=== PATIENT | male | born 1950 | race Caucasian/White ===

== ENCOUNTER 2020-03-15 18:46 | Inpatient (IN) | payer OTHER ==
[~2020-03-15] VITALS: Ht 182.9 cm; Wt 108.0 kg
[2020-03-15 22:15] VITALS: BP 181/117
--- NOTE | 2020-03-15 22:30 | NUR ---
Patient arrived from [facility]. Patient A/O x4, respirations even/unlabored, NAD at this time. Patient denies any chest pain, shortness of breath, dizziness, weakness or nausea. Placed on monitoring and evaluation advisor, hypertensive at this time. MD at bedside, will discuss HTN treatment and plan of care.
--- NOTE | 2020-03-15 22:33 | NUR ---
Notified of patient admission, new orders received
[2020-03-15 22:54] LABS: BASOPHIL # 0.1 10^3/uL (0.0-0.1); BASOPHIL % 0.9 % (0.0-0.2); EOSINOPHIL # 0.1 10^3/uL (0.0-0.2); EOSINOPHIL % 2.1 % (0.0-5.0); LYMPHOCYTES # 1.37 10^3/uL1 (1.0-4.8); LYMPHOCYTES % 23.5 % (24.0-44.0); MEAN CORP HGB 36.1 pg (26-34); MONOCYTES # 0.9 10^3/uL (0.3-0.8); MONOCYTES % 15.2 % (5.0-12.0); NEUTROPHIL # 3.4 10^3/uL (1.8-7.7); NEUTROPHILS % 58.1 % (41.0-85.0); PLATELET COUNT 261 10^3/uL (150-400); RED CELL DISTRIBUTION WIDTH 13.5 % (11.5-14.5)
[2020-03-15] MEDS ORDERED: ATIVAN IV STA (22:54)
[2020-03-15 23:00] VITALS: BP 204/90
[2020-03-15] MEDS ORDERED: APRESOLINE IV PRN (23:00)
[2020-03-15] MEDS ORDERED: TRANDATE IV ONE (23:00)
[2020-03-15 23:15] VITALS: BP 134/83
[2020-03-15 23:21] LABS: CALCIUM 9.4 mg/dL (8.4-10.5); CARBON DIOXIDE 26.6 mmol/L (20.0-32)
[2020-03-15 23:30] VITALS: BP 155/89
[2020-03-15 23:45] VITALS: BP 131/86
--- NOTE | 2020-03-15 23:48 | NUR ---
at bedside. discussed new lab results. New orders received.
[2020-03-15] MEDS ORDERED: LASIX IV STA (23:49)
[2020-03-16] VITALS (28 sets, daily range): BP systolic 82–177; BP diastolic 37–119
[2020-03-16] MEDS ORDERED: KCL 20MEQ/100ML 100 ML IV SCH
[2020-03-16] MEDS ORDERED: MAGNESIUM SULFATE 50 ML IV ONE
--- NOTE | 2020-03-16 00:20 | NUR ---
Dr. Nava contacted at the request of Dr. Mims for orders regarding cardiac condition. No answer x 2, left message, awaiting call back.
--- NOTE | 2020-03-16 00:26 | NUR ---
Benjamin catheter placed, 16F, no problems noted with insertion, draining.
[2020-03-16] MEDS ORDERED: NS 250ML 250 ML IV ONE (00:47)
--- NOTE | 2020-03-16 02:00 | NUR ---
Notified Dr. Mims that Dr. Nava had not returned call. Per MD, ok to wait until morning to recontact. No changes in patient care at this time.
--- NOTE | 2020-03-16 02:51 | PCM.HP ---
History of Present Illness Reason for Visit: (1) Chronic atrial fibrillation ICD Code: I48.20 - Chronic atrial fibrillation, unspecified SNOMED: 753793618 (2) Acute on chronic congestive heart failure ICD Code: I50.9 - Heart failure, unspecified SNOMED: 239766814, 46678126221205 (3) Presence of stent in coronary artery in patient with coronary artery disease ICD Code: I25.10 - Atherosclerotic heart disease of [place] coronary artery without angina pectoris; Z95.5 - Presence of coronary angioplasty implant and graft SNOMED: 295508033, 463171279 (4) Chest pain ICD Code: R07.9 - Chest pain, unspecified SNOMED: 79317784 (5) Hypertension ICD Code: I10 - Essential (primary) hypertension SNOMED: 53945688 Hx of Present Illness 69-year-old [facility] over possible acute coronary syndromeWith her facility having no access to a lead portfolio manager.. He initially presented to that facility with complaints of acute onset of heavy chest pain lasting a number of minutes at about 3 AM this morning. And there reports there was suggestion that this recurred with exercise but the patient denies that. His initial troponin at their facility was 38.7 on a scale with a normal that extended to 34. He does have a history of coronary artery disease and prior angioplasty a few months ago for which she continues to be treated with Brilinta for stent placement.He takes Xarelto for his chronic atrial fibrillation which exhibits good rate control He also does have a history of DVT with pulmonary embolus and apparently previously had an IVC filter placed which has since been removed. He reports a long history of labile hypertension which is treated with carvedilol and clonidine but continues to be labile to the 170-180 range frequently. He does have a history of some congestive heart failure and by our labs tonight his proBNP was significantly elevated to 3488 prompting a treatment with 80 mg IV LasiHis comorbid issues include bipolar disorder and schizophrenia, and he is difficult historian and tends to be tangential and easily distracted and quite verbally profuse. His initial troponin here was within normal limits and all other routine labs were essentially normal including a magnesium of 1.9. Is currently denying chest pain and has twelve-lead EKG is not suggestive of any acute ischemia at this time Past Medical History PMH-Psych: (1) Schizophrenia ICD Code: F20.9 - Schizophrenia, unspecified SNOMED: 82028247 (2) Bipolar disorder ICD Code: F31.9 - Bipolar disorder, unspecified SNOMED: 15907776 Past Surgical History: (1) CAD S/P percutaneous coronary angioplasty ICD Code: I25.10 - Atherosclerotic heart disease of [place] coronary artery without angina pectoris; Z98.61 - Coronary angioplasty status SNOMED: 132358874 Review of Systems Constitutional: Weakness, Malaise Respiratory: Shortness of breath, SOB with excertion Cardiovascular: Chest Pain, Lt Headedness Neurological: Weakness VTE VTE Risk Total Score: >5 VTE Risk Score VTE Risk: Score 0-1 = Low Risk (Aggressive mobilization; early ambulation; no VTE prophylaxis required) Score 2: Moderate Risk (Intermittent/Pneumatic Compression Device OR Lovenox/Heparin/Coumadin) Score 3-4: High Risk (Intermittent/Pneumatic Compression Device AND Lovenox/Heparin/Coumadin) Score > or =5: Highest Risk (Intermittent/Pneumatic Compression Device AND Lovenox/Heparin/Coumadin) Antico:Hep/LMWH/Coum/Xarelto: Yes VTE VTE Present on Admission: No Currently receiving anticoagul: Yes VTE Risk Total Score: >5 Antico:Hep/LMWH/Coum/Xarelto: Yes Exam Vital Signs Vital Signs Date Time Temp Pulse Resp B/P (MAP) Pulse Ox O2 Delivery O2 Flow Rate FiO2 03/16/20 01:00 68 16 132/90 (104) 96 03/16/20 00:00 Room Air 03/16/20 00:00 98.7 03/15/20 22:15 2.00 General Appearance: Alert, Oriented X3, Cooperative, No acute distress, Other (Verbose and tangential) HEENT: PERRLA, EOMI Respiratory: Clear to auscultation, Normal air movement Cardiovascular: Other (Irregular rhythm) Abdominal: Normal bowel sounds, Soft Extremities: No clubbing, No cyanosis, No edema Skin: No rash, No lesions Neuro: Normal gait, Strength at 5/5 X4 ext, Normal tone, Cranial nerves 3-12 NL Psych/Mental Status: Other (Tangential in thought and speech with rapid speech and difficult to keep on track with conversation) Assessment/Plan Assessment/Plan Assessment/Plan ASSESSMENT: CHEST PAIN / PRESSURE ON AWAKENING WITH SOB AND WEAKNESS -CONCERN FOR ACUTE CORONARY SYNDROME ON TRANSFER -MARGINALLY ELEVATED TROPONIN INITIALLY, ESSENTIALLY NORMAL NOW -HAS REMAINED PAIN-FREE SINCE INITIAL EVENT -XARELTO BEING HELD IN FAVOR OF HEPARIN DRIP WITH KNOWN CAD AND RECENT STENT PLACEMENT -ON BRILINTA ELEVATED BNP WITH SOME PULMONARY CONGESTION ON X-RAY -C/W VOLUME OVERLOAD -GIVEN 80 MG IV LASIX UNCONTROLLED HTN - RESPONDED WELL TO ABOVE ALONG WITH LABETALOL - HE IS CHRONICALLY EMPLOYING HIGH DOSE CLONIDINE - CONCERN FOR REBOUND POTENTIAL CHRONIC ATRIAL FIBRILLATION -GOOD RATE CONTROL HISTORY OF DVT AND PE -PRIOR IVC FILTER PLACEMENT AND SUBSEQUENT REMOVAL -WILL CHECK D-DIMER, BUT DOUBT RECURRENCE GIVEN XARELTO VITAMIN B-12 DEFICIENCY - MCV OF 106.7 BIPOLAR / SCHIZOPHRENIA -GIVEN SEROQUEL WITH GOOD RESPONSE GIVEN HIS PERSISTENT RAPID / PRESSURED SPEECH AND ANXIETY PLAN: CONTINUE HEPARIN DRIP ATTEMPTED TO CONTACT DR. GOMEZ FOR CONSULT RESUME HOME BLOOD PRESSURE MEDICATIONS RECHECK TROPONIN REPEAT EKG IN AM CONSIDER NTG PASTE OR PATCH WITH ANY RECURRENT CHEST PAIN Problem Qualifiers (1) Chest pain: Chest pain type: precordial pain Qualified Codes: R07.2 - Precordial pain (2) Hypertension: Hypertension type: essential hypertension Qualified Codes: I10 - Essential (primary) hypertension PHILLIP CLAUDIO MD Mar 16, 2020 02:51
--- NOTE | 2020-03-16 05:11 | PCM.EKG ---
[facility] Test Date: 2020-03-16 Test Time: 00:43:55 Pat Name: MARINA BOB Department: Room: 234 A Gender: M Regional Clinical Research Associate: ROBERTO : 1950 Requested By: CLINT BOYLE Order Number: [id number] Reading MD: Measurements Intervals [place] Rate: 69 P: 53 LA: 189 QRS: -60 QRSD: 177 T: 22 QT: 478 QTc: 512 Interpretive Statements Sinus rhythm Right bundle branch block No previous ECG available for comparison Please click the below link to view image of tracing.
--- NOTE | 2020-03-16 05:11 | NUR ---
Dr. Nava contacted primary RN. Patient condition discussed and all updates provided. Per MD, no emergent cardiac catheterization at this time. Will continue to monitor closely. See new orders.
[2020-03-16 06:50] LABS: BASOPHIL % 0.5 % (0.0-0.2); EOSINOPHIL # 0.1 10^3/uL (0.0-0.2); EOSINOPHIL % 1.1 % (0.0-5.0); LYMPHOCYTES % 14.8 % (24.0-44.0); MEAN CORP HGB 36.3 pg (26-34); MONOCYTES # 1.1 10^3/uL (0.3-0.8); MONOCYTES % 13.9 % (5.0-12.0); NEUTROPHIL # 5.7 10^3/uL (1.8-7.7); NEUTROPHILS % 69.6 % (41.0-85.0); PLATELET COUNT 275 10^3/uL (150-400); RED CELL DISTRIBUTION WIDTH 13.7 % (11.5-14.5)
[2020-03-16 07:14] LABS: CALCIUM 9.4 mg/dL (8.4-10.5); CARBON DIOXIDE 25.5 mmol/L (20.0-32); GLUCOSE 107 mg/dL (70-110)
[2020-03-16] MEDS: ASPIRIN EC PO SCH (08:20)
[2020-03-16] MEDS: COREG PO SCH ×2 (08:21→20:43)
--- NOTE | 2020-03-16 08:40 | DIREP ---
PROCEDURE:CHEST 1 VIEW COMPARISON:None. INDICATIONS:CHF FINDINGS: LUNGS/PLEURA:No significant pulmonary parenchymal abnormalities. No effusions. VASCULATURE:Normal. Unremarkable pulmonary vasculature. CARDIAC:Normal. No cardiac silhouette abnormality or cardiomegaly. MEDIASTINUM:Calcified aorta. BONES:Degenerative changes. OTHER:Negative. CONCLUSION:No acute pulmonary process. Dictated by: Saravanan Munson M.D. on 03/16/2020 at 08:38 AM
[2020-03-16] MEDS ORDERED: BRILINTA PO SCH (09:00)
[2020-03-16] MEDS: COZAAR PO SCH (09:00)
[2020-03-16] MEDS ORDERED: LASIX IV SCH (09:00)
[2020-03-16] MEDS ORDERED: VITAMIN B-COMPLEX WITH VIT C PO SCH (09:00)
[2020-03-16] MEDS ORDERED: XARELTO PO SCH (09:00)
[2020-03-16] MEDS: CATAPRES PO SCH ×2 (09:31→20:47)
[2020-03-16] MEDS: VITAMIN C PO SCH (09:35)
[2020-03-16] MEDS ORDERED: SOLU-CORTEF IV STA (10:06)
[2020-03-16] MEDS ORDERED: SOLU-CORTEF ONE (10:12)
[2020-03-16] MEDS ORDERED: NS 1000ML 1,000 ML IV ONE (10:30)
--- NOTE | 2020-03-16 11:07 | NUR ---
Report obtained from previous nurse. Pt alert and oriented, denies pain. Pt hypotensive on monitor [address] Carlos Patino at bedside. Solucortef 100 mg ordered and given, EKG, Stat labs, Echo ordered and performed. NiTro paste to left chest removed at 1020. EKG reviewed by Dr Patino, no changes noted. BP currently improving, will continue to monitor.
--- NOTE | 2020-03-16 11:11 | NUR ---
Pts blood pressure this morning at 0725 is 154/88. Pts blood pressure 0.5 hr later was down to 90/47. Pt wanted to got up to walk this morning in the halls despite being told to stay in bed. Pts blood pressure continued to decrease. Pts blood pressure medication was held. Pts Dr notified on the drop in blood pressure, Dr ordered 2 500 ml bolus of NS. Pt blood pressure increased to 106/37. Pt given to an ICU nurse to get care, report given. Pt will continue to be monitored.
--- NOTE | 2020-03-16 12:10 | PCM.EKG ---
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
--- NOTE | 2020-03-16 12:26 | NUR ---
Dr Iza Patino called and updated on pt's BP. Pt BP steadily increasing. Pt scheduled AM meds discussed, decision made by Dr Fung to give Cozarr 100 mg by mouth and continue to hold clonidine. Pt educated and medicated with Cozarr, will continue to monitor.
[2020-03-16] MEDS ORDERED: COZAAR PO ONE (12:30)
--- NOTE | 2020-03-16 14:29 | PCM.ECHO ---
APPROVED REPORT EXAM: Comprehensive 2D, Doppler, and color-flow Echocardiogram. Patient Location: IN-PATIENT Rhythm: NSR Indications Chest Pain 2D Dimensions LVOT Diameter 2.44 (1.8-2.4cm) LVEF(%) 57.25 (>50%) M-Mode Dimensions RVDd 1.95 (2.1-3.2cm) Left Atrium(MM) 4.90 (2.5-4.0cm) IVSd 1.55 (0.7-1.1cm) Aortic Root 4.50 (2.2-3.7cm) LVDd 6.05 (4.0-5.6cm) Aortic Cusp Exc 2.85 (1.5-2.0cm) PWd 1.25 (0.7-1.1cm) MV EPSS 0.96 (<0.5cm) IVSs 2.25 cm FS (%) 33.05 % LVDs 4.05 (2.0-3.8cm) ESV(Teich) 73.27 ml PWs 1.80 cm LVEF(%) 60.68 (>50%) Volumes Biplane 2D LV Volumes Biplane 2D LA Volumes LVEDv A4C 154.08 mL LA ESV Index LVESv A4C 65.87 mL Aortic Valve AoV Peak Tylor. 1.20 m/s AoV VTI 25.30 cm AO Peak GR. 6.15 mmHg AO Mean GR. 3.50 mmHg LVOT VTI 19.38 cm LVOT Peak Tylor. 1.01 m/s GRANT(VTI)/BSA 3.57 cm2/m2 GRANT (VTI) 3.57 cm2 Mitral Valve MV E Velocity 0.75m/s MR Peak Gr. 2.35mmHg MV A Velocity 1.20m/s TDI Lateral E' P. V 0.07m/s Medial E' P. V 0.07m/s Pulmonary Valve PV Peak Velocity 0.65m/s PV Peak Grad. 1.90mmHg RVOT VTI 12.66cm LEFT VENTRICLE The left ventricle is normal size. The left ventricular systolic function is normal. The left ventricular ejection fraction is within the normal range. There is normal left ventricular wall thickness. There is normal LV segmental wall motion. There is no ventricular septal defect visualized. No left ventricle thrombus noted on this study. LVEF is 55%. RIGHT VENTRICLE The right ventricle is normal size. The right ventricular systolic function is normal. There is normal right ventricular wall thickness. ATRIA The left atrium size is normal. The right atrium size is normal. The interatrial septum is intact with no evidence for an atrial septal defect. AORTIC VALVE The aortic valve is normal in structure. There is no aortic valvular stenosis. No aortic regurgitation is present. There is no aortic valvular vegetation. MITRAL VALVE The mitral valve is normal in structure. There is no mitral valve stenosis. Mild mitral regurgitation. There is no evidence of mitral valve vegetations. TRICUSPID VALVE The tricuspid valve is normal in structure. There is no tricuspid valve stenosis. Mild tricuspid regurgitation. There is no tricuspid valve vegetations. PULMONIC VALVE Pulmonic valve is not well visualized. There is no pulmonic valvular stenosis. There is no pulmonic valvular regurgitation. GREAT VESSELS The aortic root is normal in size. Pulmonary artery is not well visualized. Aortic arch is not well visualized. The IVC is normal in size and collapses >50% with inspiration. PERICARDIUM There is no pericardial effusion. There is no pleural effusion. <Conclusion> The left ventricular systolic function is normal. LVEF is 55%. Mild mitral regurgitation. Mild tricuspid regurgitation. Electronically signed by : CLINT BOYLE. 03/16/2020 14:29:17
--- NOTE | 2020-03-16 14:44 | PRM.PN ---
PROGRESS NOTE SUBJECTIVE Patient is seen and examined. Had episode of hypotension that improved after IV NS bolus. Later BP increased exponentially prompting treatment with cozaar. He denies having chest pain. Troponin remain unremarkable. EKG remain unchanged during the period. OBJECTIVE First Vital Signs Date Time Temp Pulse Resp B/P (MAP) Pulse Ox O2 Delivery O2 Flow Rate FiO2 03/15/20 22:15 98.1 76 20 181/117 (138) 98 03/15/20 22:15 Nasal Cannula 2.00 Last Vital Signs Date Time Temp Pulse Resp B/P (MAP) Pulse Ox O2 Delivery O2 Flow Rate FiO2 03/16/20 13:45 74 129/72 (91) 98 03/16/20 11:47 98.0 03/16/20 11:38 Room Air 03/16/20 10:21 18 03/15/20 22:15 2.00 Laboratory Tests Test 03/15/20 22:43 03/15/20 22:53 03/16/20 05:58 03/16/20 10:20 White Blood Count 5.8 10^3/uL (4.5-11.0) 8.1 10^3/uL (4.5-11.0) Red Blood Count 3.57 10^6/uL (4.50-5.90) 3.66 10^6/uL (4.50-5.90) Hemoglobin 12.9 g/dL (13.9-16.3) 13.3 g/dL (13.9-16.3) Hematocrit 37.6 % (37.0-53.0) 38.5 % (37.0-53.0) Mean Corpuscular Volume 105.3 fL (78-100) 105.2 fL (78-100) Mean Corpuscular Hemoglobin 36.1 pg (26-34) 36.3 pg (26-34) Mean Corpuscular Hemoglobin Concent 34.3 g/dL (33-36.5) 34.5 g/dL (33-36.5) Red Cell Distribution Width 13.5 % (11.5-14.5) 13.7 % (11.5-14.5) Platelet Count 261 10^3/uL (150-400) 275 10^3/uL (150-400) Mean Platelet Volume 8.8 fL (7.8-11.0) 9.4 fL (7.8-11.0) Neutrophils (%) (Auto) 58.1 % (41.0-85.0) 69.6 % (41.0-85.0) Lymphocytes (%) (Auto) 23.5 % (24.0-44.0) 14.8 % (24.0-44.0) Monocytes (%) (Auto) 15.2 % (5.0-12.0) 13.9 % (5.0-12.0) Neutrophils # (Auto) 3.4 10^3/uL (1.8-7.7) 5.7 10^3/uL (1.8-7.7) Lymphocytes # (Auto) 1.37 10^3/uL1 (1.0-4.8) 1.20 10^3/uL1 (1.0-4.8) Monocytes # (Auto) 0.9 10^3/uL (0.3-0.8) 1.1 10^3/uL (0.3-0.8) Absolute Immature Granulocyte (auto 0.01 10^3 u/L (0-2) 0.01 10^3 u/L (0-2) Absolute Eosinophils (auto) 0.1 10^3/uL (0.0-0.2) 0.1 10^3/uL (0.0-0.2) Immature Granulocytes % 0.20 % (0.00-0.50) 0.10 % (0.00-0.50) Eosinophils % 2.1 % (0.0-5.0) 1.1 % (0.0-5.0) Basophils % 0.9 % (0.0-0.2) 0.5 % (0.0-0.2) Basophils # 0.1 10^3/uL (0.0-0.1) 0.0 10^3/uL (0.0-0.1) Sodium Level 140 mmol/L (132-145) 140 mmol/L (132-145) Potassium Level 3.4 mmol/L (3.6-5.2) 3.6 mmol/L (3.6-5.2) Chloride Level 106.0 mmol/L (96-109) 105.0 mmol/L (96-109) Carbon Dioxide Level 26.6 mmol/L (20.0-32) 25.5 mmol/L (20.0-32) Anion Gap 10.8 13.1 Blood Urea Nitrogen 17 mg/dL (7-18) 17 mg/dL (7-18) Creatinine 0.94 mg/dL (0.59-1.40) 0.95 mg/dL (0.59-1.40) Estimated GFR () 95.7 (>/=60) 94.6 (>/=60) Est GFR (CKD-EPI)(Non-Afr [place]) 79.1 (>/=60) 78.2 (>/=60) BUN/Creatinine Ratio 18.0 17.0 Glucose Level 129 mg/dL (70-110) 107 mg/dL (70-110) Calcium Level 9.4 mg/dL (8.4-10.5) 9.4 mg/dL (8.4-10.5) Magnesium Level 2.1 mg/dL (1.8-2.4) 2.4 mg/dL (1.8-2.4) Total Bilirubin 0.8 mg/dL (0.2-1.0) Aspartate Amino Transf (AST/SGOT) 28 U/L (0-35) Alanine Aminotransferase (ALT/SGPT) 44 U/L (12-78) Alkaline Phosphatase 86 U/L (50-136) Troponin I 0.04 ng/mL (0.00-0.05) < 0.02 ng/mL (0.00-0.05) 0.02 ng/mL (0.00-0.05) Pro-B-Type Natriuretic Peptide 3488 pg/mL (0-125) Total Protein 6.2 g/dL (6.4-8.2) Albumin 3.6 g/dL (3.4-5.0) Globulin 2.6 Albumin/Globulin Ratio 1.384 Prothrombin Time 11.1 SEC (9.3-11.3) Prothrombin Time INR (Non-Therap) 1.1 Activated Partial Thromboplast Time 27.9 SEC (24.67-30.72) Total Creatine Kinase 85 U/L (39-308) 78 U/L (39-308) Creatine Kinase MB 1.1 ng/mL (0.5-3.6) 0.8 ng/mL (0.5-3.6) General Appearance: Alert, Oriented X3, Cooperative, No acute distress, tangential thought HEENT: PERRLA, EOMI Respiratory: Clear to auscultation, Normal air movement Cardiovascular: RRR Abdominal: Normal bowel sounds, Soft Extremities: No clubbing, No cyanosis, No edema Skin: No rash, No lesions Neuro: Normal gait, Strength at 5/5 X4 ext, Normal tone, Cranial nerves 3-12 NL Psych/Mental Status: Tangential in thought and speech with rapid speech and difficult to keep on track with conversation Assessment/Plan Labile hypertension -concerning for phaechromcytoma, Will order plasma metenaphrines -hypotension improved after NS bolus and 100mg hydrocortisone -episode of HTN noted again -patient claimed that he had this problem for a long time CHEST PAIN -resolved -troponin remain normal -EKG unchanged -cardiology consulted -discussed patient with Dr Nava. Observe another day. hx of CAD -continue brilanta Hx of PE/DVT -continue heparin -resume xarelto after discharge Hx of CHF -recent elevation of BNP noted -repeat ECHO ordered -report is pending -Hold laxis because of hypotension -Megaloblastic anemia -continue Vit B12 and folic acid supplementation Further care per clinical course: Clemente lab results to r/o phaechromocytoma. CHRISTINA LINARES MD Mar 16, 2020 14:44
--- NOTE | 2020-03-16 17:24 | PCM.EKG ---
[facility] Test Date: 2020-03-16 Test Time: 10:20:52 Pat Name: MARINA BOB Department: Room: 234 A Gender: M Travel Counselor: CELIA : 1950 Requested By: PHILLIP CLAUDIO Order Number: [id number] Reading MD: Measurements Intervals [place] Rate: 96 P: 41 VT: 188 QRS: -70 QRSD: 174 T: -5 QT: 445 QTc: 563 Interpretive Statements Sinus rhythm RBBB and LAFB Compared to ECG 03/16/2020 05:26:34 Left anterior fascicular block now present Atrial premature complex(es) no longer present Please click the below link to view image of tracing.
[2020-03-16] MEDS ORDERED: LASIX PO STA (17:25)
[2020-03-16] MEDS ORDERED: APRESOLINE PO PRN (17:30)
[2020-03-16] MEDS ORDERED: LIPITOR PO SCH (21:00)
--- NOTE | 2020-03-17 02:18 | NUR ---
While sleeping patients spo2 observed decreasing to 97-88% when patient awakened by nurse and asked to deep breath spo2 increased to 93-94% RT notified pt to wear 2L of o2 via nasal cannula while sleeping to maintain spo2 above 92%.
[2020-03-17 07:29] VITALS: BP 167/99
[2020-03-17 08:38] VITALS: BP 128/77
[2020-03-17] MEDS: COREG PO SCH (08:41)
[2020-03-17] MEDS: COZAAR PO SCH (08:42)
[2020-03-17] MEDS: VITAMIN C PO SCH (08:43)
[2020-03-17] MEDS: ASPIRIN EC PO SCH (08:43)
[2020-03-17] MEDS ORDERED: NORVASC PO SCH ×2 (09:00)
[2020-03-17 09:11] VITALS: BP 116/77
[2020-03-17 10:25] VITALS: BP 115/70
[2020-03-17] MEDS ORDERED: ASPI-929 PO (11:20)
[2020-03-17] MEDS ORDERED: AMLO5TAB4 PO (11:20)
[2020-03-17] MEDS ORDERED: ATOR40TA PO (11:20)
[2020-03-17] MEDS ORDERED: LOSA50TA2 PO (11:20)
[2020-03-17] MEDS ORDERED: CARV12.5 PO (11:20)
[2020-03-17 12:58] VITALS: BP 139/84
--- NOTE | 2020-03-17 13:01 | CNH ---
DATE OF CONSULTATION: 03/16/2020 REASON FOR CONSULTATION: Chest pain/mildly decompensated heart failure. HISTORY OF PRESENT ILLNESS: This is a 69-year-old male who presented initially to the [facility] with symptoms of chest discomfort, which he describes as sharp pain in the substernal region. Upon presentation to the Emergency Room at the [facility], troponin was noted to be marginally elevated and so the patient was transferred to [facility] for higher acuity of care. At this time, he denies any chest pain, shortness of breath or palpitations. EKG shows normal sinus rhythm with a right bundle branch block with no evidence of myocardial ischemia. Troponins at this hospital have been negative x 3. His proBNP was noted to be elevated at 3488. A diagnosis of mild decompensated heart failure has been made and the patient is currently being treated with diuretics as well as beta-amos therapy and ARBs therapy. PAST MEDICAL HISTORY: Significant for; 1. Chronic CHF. 2. Known CAD, status post PCI in the past. 3. Hypertension. 4. Chronic atrial fibrillation. 5. Schizophrenia. 6. Bipolar disorder. PAST SURGICAL HISTORY: Cardiac catheterization with PCI to an unknown vessel done few months ago according to the patient. ALLERGIES: He is allergic to HYDROCHLOROTHIAZIDE and LISINOPRIL. MEDICATIONS: He takes at home includes; 1. Aspirin. 2. Brilinta. 3. Xarelto. 4. Carvedilol. 5. Clonidine. 6. Multivitamins. FAMILY HISTORY: He denies any family history of premature coronary artery disease or sudden cardiac . SOCIAL HISTORY: Denies alcohol use. Denies tobacco use. Denies illicit drug use. REVIEW OF SYSTEMS: As per HPI and as per previous records, all systems reviewed and negative for interval change. PHYSICAL EXAMINATION: VITAL SIGNS: Blood pressure is 129/72, respiratory rate is 18, pulse is 74 and oxygen saturation is 98% on room air. GENERAL: I see no apparent distress, alert and oriented x 3. HEENT: Normocephalic, atraumatic. Extraocular muscles are intact. Pupils are equally round and reactive to light and accommodation. CARDIAC: S1, S2. No gallops, murmurs, rubs, or clicks. LUNGS: Clear to auscultation bilaterally. No wheezing, rhonchi or rales. ABDOMEN: Soft, nontender, nondistended. Positive bowel sounds in all 4 quadrants. EXTREMITIES: No cyanosis, no clubbing, no edema, +2 pedal pulses palpable bilaterally. NEUROLOGIC: No neurological deficits. Sensation is intact. IMPRESSION: 1. Chest pain, rule out acute coronary syndrome. 2. Known history of coronary artery disease with prior percutaneous coronary intervention to an unknown vessel done this year according to the patient. 3. Acute decompensated heart failure secondary to diastolic dysfunction. 4. Chronic congestive heart failure. 5. Hypertension. 6. Bipolar disorder. 7. Schizophrenia. 8. Left ventricular ejection fraction of 55% with no evidence of wall motion abnormalities seen on 2D echo. RECOMMENDATIONS: This is a 69-year-old male who was transferred in from the [facility] with symptoms of chest discomfort. Troponins done here at the hospital is currently negative x 3. EKG does not show any evidence of myocardial ischemia. He is currently chest pain free at this time. A 2D echo done during this admission showed a left ventricular ejection fraction of 55% with no evidence of wall motion abnormalities. He was noted to be in mildly decompensated heart failure and has been given diuretic therapy as well as beta-amos and ARBs. I would recommend to continue fluids restriction to 1.5 liters a day, strict I's and O's, daily weights and sodium restriction. Continue current cardiac medications. Continue to monitor blood pressure and heart rate. Continue home cardiac medications. No invasive cardiac workup is planned at this time. The patient can be discharged home when euvolemic to follow up with me in the office in 2-3 weeks. CLINT BOYLE D.O. : SAIDA/buddy JOB# [id number]
--- NOTE | 2020-03-17 16:02 | NUR ---
Pt discharged at 13:30 with a ride. Vitals signs are stable and ambulating to the car. Pts discharge teaching taught to pt. Pt verbalized understanding of medication and discharge follow up appointments. Pts IVs taken out. Pts clothing, prescription for medication and paper instructions taken with pt.
--- NOTE | 2020-03-17 19:43 | PRM.DC ---
Discharge Summary HPI and Diagnostic Evaluation 69-year-old gentleman transferred to our facility from an outlying hospital with concerns over possible acute coronary syndromeWith her facility having no access to a driller's assistant.. He initially presented to that facility with complaints of acute onset of heavy chest pain lasting a number of minutes at about 3 AM this morning. And there reports there was suggestion that this recurred with exercise but the patient denies that. His initial troponin at their facility was 38.7 on a scale with a normal that extended to 34. He does have a history of coronary artery disease and prior angioplasty a few months ago for which she continues to be treated with Brilinta for stent placement.He takes Xarelto for his chronic atrial fibrillation which exhibits good rate control He also does have a history of DVT with pulmonary embolus and apparently previously had an IVC filter placed which has since been removed. He reports a long history of labile hypertension which is treated with carvedilol and clonidine but continues to be labile to the 170-180 range frequently. He does have a history of some congestive heart failure and by our labs tonight his proBNP was significantly elevated to 3488 prompting a treatment with 80 mg IV LasiHis comorbid issues include bipolar disorder and schizophrenia, and he is difficult historian and tends to be tangential and easily distracted and quite verbally profuse. His initial troponin here was within normal limits and all other routine labs were essentially normal including a magnesium of 1.9. Is currently denying chest pain and has twelve-lead EKG is not suggestive of any acute ischemia at this time. PAST MEDICAL HISTORY: Significant for; 1. Chronic CHF. 2. Known CAD, status post PCI in the past. 3. Hypertension. 4. Chronic atrial fibrillation. 5. Schizophrenia. 6. Bipolar disorder. MEDICATIONS: He takes at home includes; 1. Aspirin. 2. Brilinta. 3. Xarelto. 4. Carvedilol. 5. Clonidine. 6. Multivitamins. Allergies: Coded Allergies: hydrochlorothiazide (Verified Allergy, Unknown, 03/16/20) lisinopril (Verified Allergy, Unknown, 03/16/20) Home Meds Active Scripts Aspirin (ASPIRIN EC) 81 Mg Tablet., 81 MG PO DAILY for 30 Days Prov:JULIANN SUNSHINE MD 03/17/20 Losartan Potassium (COZAAR) 50 Mg Tablet, 100 MG PO DAILY for 30 Days, TAB Prov:JULIANN SUNSHINE MD 03/17/20 Carvedilol 12.5MG (COREG 12.MG) 12.5 Mg Tablet, 25 MG PO BID for 30 Days, TAB Prov:JULIANN SUNSHINE MD 03/17/20 Atorvastatin 40MG (LIPITOR 40MG) 40 Mg Tablet, 40 MG PO HS for 30 Days, TAB Prov:JULIANN SUNSHINE MD 03/17/20 Amlodipine Besylate (NORVASC) 5 Mg Tablet, 5 MG PO DAILY for 30 Days, TAB Prov:JULIANN SUNSHINE MD 03/17/20 Scheduled Amlodipine Besylate (Norvasc), 5 MG PO DAILY Aspirin (Aspirin Ec), 81 MG PO DAILY Atorvastatin 40MG (Lipitor 40MG), 40 MG PO HS Carvedilol 12.5MG (Coreg 12.MG), 25 MG PO BID Losartan Potassium (Cozaar), 100 MG PO DAILY Consultations Cardiology: . Procedures Laboratory Tests Test 03/15/20 22:43 03/15/20 22:53 03/16/20 05:58 03/16/20 10:20 White Blood Count 5.8 10^3/uL (4.5-11.0) 8.1 10^3/uL (4.5-11.0) Red Blood Count 3.57 10^6/uL (4.50-5.90) 3.66 10^6/uL (4.50-5.90) Hemoglobin 12.9 g/dL (13.9-16.3) 13.3 g/dL (13.9-16.3) Hematocrit 37.6 % (37.0-53.0) 38.5 % (37.0-53.0) Mean Corpuscular Volume 105.3 fL (78-100) 105.2 fL (78-100) Mean Corpuscular Hemoglobin 36.1 pg (26-34) 36.3 pg (26-34) Mean Corpuscular Hemoglobin Concent 34.3 g/dL (33-36.5) 34.5 g/dL (33-36.5) Red Cell Distribution Width 13.5 % (11.5-14.5) 13.7 % (11.5-14.5) Platelet Count 261 10^3/uL (150-400) 275 10^3/uL (150-400) Mean Platelet Volume 8.8 fL (7.8-11.0) 9.4 fL (7.8-11.0) Neutrophils (%) (Auto) 58.1 % (41.0-85.0) 69.6 % (41.0-85.0) Lymphocytes (%) (Auto) 23.5 % (24.0-44.0) 14.8 % (24.0-44.0) Monocytes (%) (Auto) 15.2 % (5.0-12.0) 13.9 % (5.0-12.0) Neutrophils # (Auto) 3.4 10^3/uL (1.8-7.7) 5.7 10^3/uL (1.8-7.7) Lymphocytes # (Auto) 1.37 10^3/uL1 (1.0-4.8) 1.20 10^3/uL1 (1.0-4.8) Monocytes # (Auto) 0.9 10^3/uL (0.3-0.8) 1.1 10^3/uL (0.3-0.8) Absolute Immature Granulocyte (auto 0.01 10^3 u/L (0-2) 0.01 10^3 u/L (0-2) Absolute Eosinophils (auto) 0.1 10^3/uL (0.0-0.2) 0.1 10^3/uL (0.0-0.2) Immature Granulocytes % 0.20 % (0.00-0.50) 0.10 % (0.00-0.50) Eosinophils % 2.1 % (0.0-5.0) 1.1 % (0.0-5.0) Basophils % 0.9 % (0.0-0.2) 0.5 % (0.0-0.2) Basophils # 0.1 10^3/uL (0.0-0.1) 0.0 10^3/uL (0.0-0.1) Sodium Level 140 mmol/L (132-145) 140 mmol/L (132-145) Potassium Level 3.4 mmol/L (3.6-5.2) 3.6 mmol/L (3.6-5.2) Chloride Level 106.0 mmol/L (96-109) 105.0 mmol/L (96-109) Carbon Dioxide Level 26.6 mmol/L (20.0-32) 25.5 mmol/L (20.0-32) Anion Gap 10.8 13.1 Blood Urea Nitrogen 17 mg/dL (7-18) 17 mg/dL (7-18) Creatinine 0.94 mg/dL (0.59-1.40) 0.95 mg/dL (0.59-1.40) Estimated GFR () 95.7 (>/=60) 94.6 (>/=60) Est GFR (CKD-EPI)(Non-Afr [place]) 79.1 (>/=60) 78.2 (>/=60) BUN/Creatinine Ratio 18.0 17.0 Glucose Level 129 mg/dL (70-110) 107 mg/dL (70-110) Calcium Level 9.4 mg/dL (8.4-10.5) 9.4 mg/dL (8.4-10.5) Magnesium Level 2.1 mg/dL (1.8-2.4) 2.4 mg/dL (1.8-2.4) Total Bilirubin 0.8 mg/dL (0.2-1.0) Aspartate Amino Transf (AST/SGOT) 28 U/L (0-35) Alanine Aminotransferase (ALT/SGPT) 44 U/L (12-78) Alkaline Phosphatase 86 U/L (50-136) Troponin I 0.04 ng/mL (0.00-0.05) < 0.02 ng/mL (0.00-0.05) 0.02 ng/mL (0.00-0.05) Pro-B-Type Natriuretic Peptide 3488 pg/mL (0-125) Total Protein 6.2 g/dL (6.4-8.2) Albumin 3.6 g/dL (3.4-5.0) Globulin 2.6 Albumin/Globulin Ratio 1.384 Prothrombin Time 11.1 SEC (9.3-11.3) Prothrombin Time INR (Non-Therap) 1.1 Activated Partial Thromboplast Time 27.9 SEC (24.67-30.72) Total Creatine Kinase 85 U/L (39-308) 78 U/L (39-308) Creatine Kinase MB 1.1 ng/mL (0.5-3.6) 0.8 ng/mL (0.5-3.6) Test 03/16/20 14:20 Total Creatine Kinase 76 U/L (39-308) Creatine Kinase MB 0.7 ng/mL (0.5-3.6) Troponin I < 0.02 ng/mL (0.00-0.05) Hospital Course Chest pain resolved. BP was running high so we adjusted his meds and BP improved. He is seen by cardiology. Condition/Impression IMPRESSION: This is a 69-year-old male who was transferred in from the [facility] with symptoms of chest discomfort. 1. Chest pain, rule out acute coronary syndrome. Troponins done here at the hospital is currently negative x 3. EKG does not show any evidence of myocardial ischemia. He is currently chest pain free at this time. A 2D echo done during this admission showed a left ventricular ejection fraction of 55% with no evidence of wall motion abnormalities. 2-He was noted to be in mildly decompensated heart failure and has been given diuretic therapy as well as beta-amos and ARBs. Plan: fluids restriction to 1.5 liters a day daily weights and sodium restriction. Continue current cardiac medications. Continue to monitor blood pressure and heart rate. Continue home cardiac medications. No invasive cardiac workup is planned at this time. The patient can be discharged home when euvolemic to follow up with me in the office in 2-3 weeks. 3-Uncontrolled /resistant HTN: he is on 3-4 meds for HTN. per pt he never had work up for secondary HTN. Plan: - c/w losartan, metoprolol and lasix. - start Amlodipine 5 mg daily. -stop clonidine and hydrlazine. - Will recommend blood renin, aldosterone levels. - urine 24 hrs for cortisol, metanephrine and dopamine. Activity as tolerated. Diet cardiac diet. Follow-up Instructions follow up with cardiology in 2-3 weeks. JULIANN SUNSHINE MD Mar 17, 2020 19:43
== END 2020-03-17 14:55 | disposition home or self-care (01) | DRG 292 ==
LOC: MS 22:10
PROVIDERS: ADMIT Family Medicine; ATTEND Internal Medicine
DX: I11.0 Hypertensive heart disease with heart failure (principal); I48.20 Chronic atrial fibrillation, unspecified; I50.33 Acute on chronic diastolic (congestive) heart failure; I25.10 Atherosclerotic heart disease of native coronary artery without angina pectoris; F41.9 Anxiety disorder, unspecified; F31.9 Bipolar disorder, unspecified; F20.9 Schizophrenia, unspecified; I95.9 Hypotension, unspecified; E53.8 Deficiency of other specified B group vitamins; D53.1 Other megaloblastic anemias, not elsewhere classified; I45.10 Unspecified right bundle-branch block; Z95.5 Presence of coronary angioplasty implant and graft; Z86.718 Personal history of other venous thrombosis and embolism; Z86.711 Personal history of pulmonary embolism; Z88.8 Allergy status to other drugs, medicaments and biological substances
CPT/HCPCS: 36415; 71045; 80048; 80053; 82550; 82553; 83735; 83880; 84484; 85025; 85610; 85730; 93005; 93306; G0378; J1720; J1940; J2060; J3475; J7030; J7050; J3480; J3490